=== PATIENT | female | born 1985 | race Caucasian/White ===

== ENCOUNTER 2019-10-16 21:50 | Emergency (ER) | payer MEDICAID, SELFPAY ==
[2019-10-16 21:53] VITALS: BP 163/94; PULSE 110; RESP 16; TEMP 37.2; O2SAT 100; BMI 32.4
--- NOTE | 2019-10-16 21:55 | USR_ITS ---
PROCEDURE INFORMATION: Exam: US First Trimester, Transabdominal and US , Transvaginal Exam date and time: 10/16/2019 10:45 PM Age: 33 years old Clinical indication: complicated by abdominal or pelvic pain; Gestational age or lmp: PT state 6-7 wks; ; Additional info: Cramping/bleeding TECHNIQUE: Imaging protocol: Real-time transabdominal obstetrical ultrasound of the maternal pelvis and a first trimester , less than 14 weeks 0 days, with image documentation. Transvaginal imaging was used for better evaluation of the fetus and adnexa. COMPARISON: No relevant prior studies available. FINDINGS: Single living intrauterine fetus. [place] rump length of 9 mm estimates age at 6 weeks, 6 days. heart activity documented by the technologist, 114 bpm. Probable small subchorionic hematoma, measuring 15 x 10 x 12 mm. Maternal ovaries/adnexa appear essentially unremarkable. The urinary bladder was not completely evaluated/imaged at this time. Endovaginal scanning provided better visualization/evaluation of the gestational sac and contents, as discussed above. US/US OB lmt with transvaginal IMPRESSION: 1. Single living intrauterine fetus, 6 weeks, 6 days estimated age. 2. Other details discussed above.
[2019-10-16 22:30] LABS: Basophils % 0.4 %; Eosinophils # 0.3 10^3/uL (0.0-0.8); Eosinophils % 2.9 %; Hematocrit 35.7 % (37.0-47.0); Hemoglobin 11.9 g/dL (11.5-15.3); Lymphocytes # 1.8 10^3/uL (0.8-4.8); Lymphocytes % 18.7 %; Mean Corpuscular HGB Conc 33.3 g/dL (30.0-36.0); Mean Corpuscular Hemoglobin 31.1 pg (28.0-34.0); Mean Corpuscular Volume 93.2 fL (81-99); Mean Platelet Volume 9.3 fL (7.4-10.4); Monocytes # 0.4 10^3/uL (0.2-0.9); Monocytes % 4.2 %; Neutrophils # 6.9 10^3/uL (1.8-7.7); Neutrophils % 73.5 %; Nucleated Red Blood Cells % 0 %; Platelet Count 271 10^3/cmm (130-400); Red Blood Count 3.83 10^6/uL (4.1-5.3); Red Cell Distribution Width 12.2 % (12.1-15.1); White Blood Count 9.4 10^3/uL (4.0-10.0)
[2019-10-16 22:49] LABS: Alanine Aminotransferase 15 U/L (0-33); Albumin Level 3.9 g/dL (3.5-5.2); Alkaline Phosphatase 59 IU/L (35-105); Anion Gap 14.1 (5-19); Aspartate Amino Transferase 17 U/L (0-32); Blood Urea Nitrogen 9 mg/dL (6-20); Calcium 9.8 mg/Dl (8.6-10.0); Carbon Dioxide 23 mmol/L (22-29); Chloride 101 mmol/L (98-107); Globulin 3.2 g/dL (1.3-4.6); Glomerular Filtration Rate 143.9 mL/min (90-130); Glucose 122 mg/dL (74-109); Potassium 3.1 mmol/L (3.5-5.1); Sodium 135 mmol/L (136-145); Total Bilirubin 0.2 mg/dL (0.15-1.2); Total Protein 7.1 g/dL (6.6-8.7)
--- NOTE | 2019-10-16 22:50 | PC.NURSE ---
PATIENT IN ULTRASOUND
[2019-10-16 22:53] LABS: Add Urine Microscopic? YES; Bilirubin Urine Neg (NEGATIVE); Blood Urine 3+ (Negative); Glucose Urine UA Norm (Normal); Ketones Urine Negative (Negative); Leukocyte Esterase Urine Negative (Negative); Nitrate Urine Negative (Negative); Protein Urine 3+ (Negative); Urine Appearance Cloudy (CLEAR); Urine Color Red (Yellow); Urobilinogen Urine Norm (Negative); pH Urine 6 (5-7)
[2019-10-16 22:54] LABS: Add Urine Culture? Yes; Bacteria Urine 1+; RBC Urine >100 /hpf (0-2)
--- NOTE | 2019-10-16 23:17 | ED_ITS ---
Entered by Susan Kauffman, acting as scribe for Merari Cancino Max Oct 16, 2019 21:50 HPI - Female Genitourinary General: Chief complaint: Vaginal Bleeding Stated complaint: 6 weeks preg/bleeding Time Seen by Provider: 10/16/19 23:16 Source: patient and family Mode of arrival: ambulatory History of Present Illness: HPI Narrative: 33 y/o female presents to the ED with complaint of vaginal bleeding. Pt states she is 5 weeks , according to her OB, [facility], in [place]. Pt states she was sitting on the couch this evening when she felt a gush of blood . Shortly after that she started cramping. Upon arrival at [facility] [place], pt states all of her symptoms have resolved. Pt states she used to drink and smoke cigarettes, prior to becoming pregant. MD elicited complaint: vaginal bleeding Onset (ago): hour(s) Severity: mild Quality of pain: cramping Consistency: now resolved Associated symptoms: Reports vaginal bleeding; Deny abdominal pain, headache(s), nausea or syncope Review of Systems Const: Denies: fever, chills, body aches, fatigue, malaise or diaphoresis Eyes: Denies: change in vision or blurry vision ENMT: Denies: throat pain, painful swallowing, hoarseness, ear pain, ear discharge, Change in hearing or nasal discharge Card: Denies: chest pain, palpitations, irregular heart rhythm, syncope, pre- syncope, shortness of breath on exertion or shortness of breath when lying down Resp: Denies: shortness of breath, productive cough, non-productive cough, wheezing, coughing up blood or chest congestion GI: Denies: abdominal pain or nausea : Reports: urinary urgency and vaginal bleeding Musc: Denies: neck pain, back pain, extremity pain, extremity swelling, joint pain, joint swelling, joint warmth or joint stiffness Skin/Breast: Denies: rash, skin tenderness or yellow skin Neuro: Denies: headache, numbness in extremities, weakness in extremities, changes in sensation, lack of coordination, difficulty walking, dizziness, vertigo or confusion Endo: Denies: excessive thirst, tired all the time, cold intolerance, excessive sweating, flushing or hot flashes Nathanael/Lymph: Denies: easy bruising, easy bleeding, petechiae or enlarged lymph nodes All/Imm: Denies: hives, throat swelling, tongue swelling, facial swelling or acute wheezing PFSH ED PFSH: Statuses (acute, chronic, etc) shown below reflect problem list status as previously entered and may not be historically accurate Social History Smoking and tobacco status: current every day smoker Physical Exam Const: COMMON NORMALS: no apparent distress, oriented x3, no limitations, healthy appearing and well nourished EXAM LIMITATIONS: no altered mental status GENERAL APPEARANCE: cooperative, well kempt and well developed ORIENTATION/CONSCIOUSNESS: Yes awake HENMT: COMMON NORMALS: normocephalic, head/scalp atraumatic, hearing grossly normal bilaterally, external ears normal, EAC's normal, external nose normal and moist oral mucous membranes HEAD & SCALP: normal to inspection, normocephalic and atraumatic FACE & SINUS: normal facial exam and face symmetric NOSE: external nose normal and nares normal EXTERNAL EAR: Yes external ears normal EXTERNAL AUDITORY CANAL: EAC's normal MOUTH: oral and palatal mucosa normal and tongue normal Eye: COMMON NORMALS: PERRL, EOMs intact bilaterally, conjunctivae normal and no scleral icterus GENERAL EYE: normal appearance of both eyes and normal light reflex CONJUNCTIVA: Yes conjunctivae normal SCLERA: sclerae normal CORNEA: Yes corneas normal PUPIL: Yes PERRL DIRECT OPHTHALMOSCOPY: Yes normal light reflex Neck/C-Spine: COMMON NORMALS: full ROM, no lymphadenopathy, supple, no meningeal signs and no JVD GENERAL: Yes normal visual inspection and Yes trachea midline CERVICAL SPINE: Yes cervical ROM normal Chest: COMMONS NORMALS: inspection of chest normal and palpation of chest normal Resp: COMMON NORMALS: normal respiratory effort, no retractions, no use of accessory muscles and clear to auscultation bilaterally EFFORT & INSPECTION: Yes able to speak in complete sentences AUSCULTATION: clear to auscultation bilaterally Cardio: COMMON NORMALS: no JVD, regular rate, regular rhythm, S1 normal heart sound, S2 normal heart sound, no gallops, no clicks, no murmurs and no rub JUGULAR VENOUS DISTENTION: no JVD RATE: regular rate RHYTHM: regular rhythm HEART SOUNDS: S1 normal and S2 normal : COMMON NORMALS: Yes external appearance normal, Yes bimanual exam normal, Yes adnexae non-tender and Yes no adnexal masses EXTERNAL FEMALE EXAM: Yes normal appearance of the urethra SPECULUM EXAM - VAGINA: Yes vaginal bleeding Amount: scant, No tissue present in vagina, No vaginal mass and No vaginal swelling SPECULUM EXAM - CERVIX: No cervical os open, Yes cervical os closed, No tissue present in the cervical os, No cervical bleeding and No cervical tenderness BIMANUAL EXAM - VAGINA & UTERUS: Yes normal bimanual exam, Yes normal cervical palpation, No cervical motion tenderness, No cervical tenderness and Yes uterine size normal BIMANUAL EXAM - ADNEXA, OTHER: Yes normal adnexae, Yes pelvic support normal, No adnexal tenderness and No adnexal mass OB/EXTERNAL & SPECULUM: vaginal bleeding; no tissue noted in vagina and cervical os open Extremity: COMMON NORMALS: normal to inspection, full ROM, normal capillary refill, no joint enlargement, no clubbing, cyanosis or edema and no calf tenderness Neuro: COMMON NORMALS: oriented x3, CN's II-XII intact bilaterally, moves all extremities, no focal motor deficits and no sensory deficits noted MENINGEAL SIGNS: Yes no meningeal signs Psych: COMMON NORMALS: mental status grossly normal, thought process normal, cooperative, affect normal, speech normal and activity/motor behavior normal APPEARANCE: Yes well kempt SPEECH: Yes normal speech THOUGHT PROCESS: normal thought process Skin: COMMON NORMALS: no rashes or lesions noted, skin turgor normal, no jaundice, no petechiae and no mottling GENERAL SKIN EXAM: no rashes or lesions noted and turgor normal Course Vital Signs: Vital signs: Vital Signs Temperature 98.9 F 10/16/19 21:53 Pulse Rate 81 10/16/19 23:58 Respiratory Rate 16 10/16/19 23:58 Blood Pressure 124/78 10/16/19 23:58 Pulse Oximetry 97 10/16/19 23:58 MDM - Female MDM Narrative: Medical decision making narrative: Michelle is a very nice 33-year-old female who comes in with a concern of vaginal bleeding. She states she was at home when she had a large gush of blood but since that time has gotten less and less bleeding and cramping that was present has also subsided. Patient states she is currently 5 weeks with her second . Ultrasound shows a 6-week 6-day intrauterine with a probable small subchorionic hematoma. Her cervix is closed on ultrasound and on exam. Patient's blood type is Rh+ she will not need RhoGam. It is unclear whether she has a UTI but I will place her on antibiotics to protect this . The patient denies any symptoms at this time. She will follow-up with her doctor or possibly establish [facility]. She understands to return here if she has any further bleeding, cramping or complaints. At this time though she is reassured and feeling better and would like to go home. Lab Data: Attestation: I reviewed the patient's lab results. Labs: Lab Results 10/16/19 10/16/19 10/16/19 Range/Units 22:00 22:16 22:16 WBC 9.4 (4.0-10.0) 10^3/ uL RBC 3.83 L (4.1-5.3) 10^6/u L Hgb 11.9 (11.5-15.3) g/dL Hct 35.7 L (37.0-47.0) % MCV 93.2 (81-99) fL MCH 31.1 (28.0-34.0) pg MCHC 33.3 (30.0-36.0) g/dL RDW 12.2 (12.1-15.1) % Plt Count 271 (130-400) 10^3/c mm MPV 9.3 (7.4-10.4) fL Neut % (Auto) 73.5 % Lymph % (Auto) 18.7 % Harlan % (Auto) 4.2 % Eos % (Auto) 2.9 % Baso % (Auto) 0.4 % Neut # (Auto) 6.9 (1.8-7.7) 10^3/u L Lymph # (Auto) 1.8 (0.8-4.8) 10^3/u L Harlan # (Auto) 0.4 (0.2-0.9) 10^3/u L Eos # (Auto) 0.3 (0.0-0.8) 10^3/u L Baso # (Auto) 0.0 (0.0-0.1) 10^3/u L Nucleated RBC % (a uto) 0 % Nucleated RBCs # 0.0 /100WBC Sodium 135 L (136-145) mmol/L Potassium 3.1 L (3.5-5.1) mmol/L Chloride 101 (98-107) mmol/L Carbon Dioxide 23 (22-29) mmol/L Anion Gap 14.1 (5-19) BUN 9 (6-20) mg/dL Creatinine 0.5 (0.5-0.9) mg/dL GFR Calculation 143.9 H (90-130) mL/min Glucose 122 H (74-109) mg/dL Calcium 9.8 (8.6-10.0) mg/Dl Total Bilirubin 0.2 (0.15-1.2) mg/dL AST 17 (0-32) U/L ALT 15 (0-33) U/L Alkaline Phosphata se 59 (35-105) IU/L Total Protein 7.1 (6.6-8.7) g/dL Albumin 3.9 (3.5-5.2) g/dL Globulin 3.2 (1.3-4.6) g/dL Ser , Dagoberto i-Qnt mIU/mL Urine Color Red (Yellow) Urine Appearance Cloudy (CLEAR) Urine pH 6 (5-7) Ur Specific Gravit y 1.020 (1.005-1.030) Urine Protein 3+ H (Negative) Urine Glucose (UA) Norm (Normal) Urine Ketones Negative (Negative) Urine Occult Blood 3+ H (Negative) Urine Nitrate Negative (Negative) Urine Bilirubin Neg (NEGATIVE) Urine Urobilinogen Norm (Negative) mg/dL Ur Leukocyte Kiki ase Negative (Negative) Urine RBC >100 H (0-2) /hpf Urine WBC 10-15 H (0-5) /hpf Ur Squamous Epith Cells 5-10 H (0-5) Urine Bacteria 1+ H (NONE) Blood Type 10/16/19 10/16/19 Range/Units 22:16 22:16 WBC (4.0-10.0) 10^3/ uL RBC (4.1-5.3) 10^6/u L Hgb (11.5-15.3) g/dL Hct (37.0-47.0) % MCV (81-99) fL MCH (28.0-34.0) pg MCHC (30.0-36.0) g/dL RDW (12.1-15.1) % Plt Count (130-400) 10^3/c mm MPV (7.4-10.4) fL Neut % (Auto) % Lymph % (Auto) % Harlan % (Auto) % Eos % (Auto) % Baso % (Auto) % Neut # (Auto) (1.8-7.7) 10^3/u L Lymph # (Auto) (0.8-4.8) 10^3/u L Harlan # (Auto) (0.2-0.9) 10^3/u L Eos # (Auto) (0.0-0.8) 10^3/u L Baso # (Auto) (0.0-0.1) 10^3/u L Nucleated RBC % (a uto) % Nucleated RBCs # /100WBC Sodium (136-145) mmol/L Potassium (3.5-5.1) mmol/L Chloride (98-107) mmol/L Carbon Dioxide (22-29) mmol/L Anion Gap (5-19) BUN (6-20) mg/dL Creatinine (0.5-0.9) mg/dL GFR Calculation (90-130) mL/min Glucose (74-109) mg/dL Calcium (8.6-10.0) mg/Dl Total Bilirubin (0.15-1.2) mg/dL AST (0-32) U/L ALT (0-33) U/L Alkaline Phosphata se (35-105) IU/L Total Protein (6.6-8.7) g/dL Albumin (3.5-5.2) g/dL Globulin (1.3-4.6) g/dL Ser , Dagober[place]-Qnt 15741.00 mIU/mL Urine Color (Yellow) Urine Appearance (CLEAR) Urine pH (5-7) Ur Specific Gravit y (1.005-1.030) Urine Protein (Negative) Urine Glucose (UA) (Normal) Urine Ketones (Negative) Urine Occult Blood (Negative) Urine Nitrate (Negative) Urine Bilirubin (NEGATIVE) Urine Urobilinogen (Negative) mg/dL Ur Leukocyte Kiki ase (Negative) Urine RBC (0-2) /hpf Urine WBC (0-5) /hpf Ur Squamous Epith Cells (0-5) Urine Bacteria (NONE) Blood Type A Positive Imaging Data: US: Radiologist's impression: [facility] [address] [place] [address] Ultrasound Report Signed Patient: Michelle Gage Unit #: [id number] : 1985 Age/Sex: 33 / F ADM Date: 10/16/19 Loc: ER Room/Bed: Attending Dr: Ordering Provider/Ordering MD: Merari Cancino DO Date of Service: 10/16/19 Procedure(s): US OB lmt with transvaginal Accession Number(s): [id number] Report Number: [id number] PROCEDURE INFORMATION: Exam: US First Trimester, Transabdominal and US , Transvaginal Exam date and time: 10/16/2019 10:45 PM Age: 33 years old Clinical indication: complicated by abdominal or pelvic pain; Gestational age or lmp: PT state 6-7 wks; ; Additional info: Cramping/bleeding TECHNIQUE: Imaging protocol: Real-time transabdominal obstetrical ultrasound of the maternal pelvis and a first trimester , less than 14 weeks 0 days, with image documentation. Transvaginal imaging was used for better evaluation of the fetus and adnexa. COMPARISON: No relevant prior studies available. FINDINGS: Single living intrauterine fetus. [place] rump length of 9 mm estimates age at 6 weeks, 6 days. heart activity documented by the technologist, 114 bpm. Probable small subchorionic hematoma, measuring 15 x 10 x 12 mm. Maternal ovaries/adnexa appear essentially unremarkable. The urinary bladder was not completely evaluated/imaged at this time. Endovaginal scanning provided better visualization/evaluation of the gestational sac and contents, as discussed above. US/US OB lmt with transvaginal IMPRESSION: 1. Single living intrauterine fetus, 6 weeks, 6 days estimated age. 2. Other details discussed above. Dictated By: Kaden Avila MD Signed By: Kaden Avila MD Signed Date/Time: 10/16/193 DD/ 49 Discharge Plan Discharge Patient Disposition: Home, Self-Care Clinical Impression: Threatened UTI (urinary tract infection) Qualifiers: Urinary tract infection type: site unspecified Hematuria presence: with hematuria Qualified Code(s): N39.0 - Urinary tract infection, site not specified Condition: Stable Prescriptions: New Keflex 500 mg capsule 500 mg PO QID 10 Days Qty: 40 RF: 0 No Action RF: 0 Women's Daily Pack RF: 0 Discharge Orders: Discharge Order (Routine); Ordered 10/17/19 Ordered By: Merari Cancino Referrals: Ian Stevens MD [Physician] - 1-3 days Melissa Bob FNP [Primary Care Provider] - Discharge Diet: Advance as tolerated Discharge Activity: Increase activity as tolerated Patient Instructions: Threatened Miscarriage (ED) Activity Restrictions/Additional Instructions: Please return to the ER immediately for any of the signs or symptoms listed on your discharge instruction sheets, worsening/changing of your symptoms, you are not getting better as quickly as expected, or for ANY other cause or concerns. Return to the ER for heavier bleeding, return of pain, vomiting, or for any other cause for concern. Be certain to follow-up with Dr. Stevens or the obstetrical doctor of your choice as soon as possible for recheck. Coding Level of Care Code ED Band Saw Marker for Chg Fwd Exam Problem Focused The documentation recorded by the Jamari lemus Ashley, accurately reflects the service I personally performed and the decisions made by , Merari Cancino Oct 16, 2019 21:50
[2019-10-16 23:29] VITALS: BP 135/75; PULSE 87; RESP 14; O2SAT 97
[2019-10-16 23:58] VITALS: BP 124/78; PULSE 81; RESP 16; O2SAT 97
[2019-10-16] MEDS: sodium chloride 0.9% 500 ML 999 ML IV (23:58)
[2019-10-17 01:10] VITALS: BP 133/71; PULSE 84; RESP 16; TEMP 36.7; O2SAT 98
--- NOTE | 2019-10-17 12:23 | DCPLANNER ---
mortgage branch manager had message that patient is to followup with ob care. mortgage branch manager called patient to discuss with patient if she wanted comp field case manager to get patient established with [facility]. mortgage branch manager unable to speak with patient at this time, a voicemail was left for patient to return field nurse case manager phone call.
== END 2019-10-17 01:12 | disposition home or self-care (01) ==
PROVIDERS: Emergency Provider Emergency Medicine; Family Provider Nurse Practitioner; PCP Nurse Practitioner
DX: O20.0 Threatened abortion (principal); O23.41 Unspecified infection of urinary tract in pregnancy, first trimester; Z3A.01 Less than 8 weeks gestation of pregnancy; O99.331 Smoking (tobacco) complicating pregnancy, first trimester; F17.210 Nicotine dependence, cigarettes, uncomplicated
CPT/HCPCS: 76815; 76817; 80053; 81003; 83735; 84702; 85025; 86900; 87086; 87210; 96360; 99283; J7040